=== PATIENT | female | born 1995 | race Caucasian/White ===

== ENCOUNTER 2017-03-03 10:24 | Emergency (ER) | payer OTHER ==
[~2017-03-03] VITALS: Ht 165.1 cm; Wt 89.0 kg
[~2017-03-03 10:24] MED LIST: IBUP-1542 PO
[2017-03-03 10:27] VITALS: Ht 165.1 cm; Wt 89.0 kg
[2017-03-03] MEDS ORDERED: ACETAMINOPHEN 500 MG TAB PO STA (10:58)
[2017-03-03] MEDS ORDERED: SOD CHLORIDE 0.9% 1,000 ML IV ONE (11:00)
--- NOTE | 2017-03-03 11:22 | ERD ---
ER Documentation Chief Complaint Date/Time DATE: 03/03/17 TIME: 11:19 Chief Complaint until thursday fever since then , right breast pain/redness HPI Is a 21-year-old female who presents the emergency department today complaining of bilateral breast pain redness and fever for the past several days. Patient states that she is currently breast-feeding and on Thursday she developed a fever so she stopped breast-feeding she was concerned she was passing the infection to her daughter. States she has taken Tylenol and Motrin. States she has also had a little bit of a sore throat. Denies any cough, dysuria, abdominal pain. ROS All systems reviewed and are negative except as per history of present illness. Medications Home Meds Active Scripts Cephalexin* (Keflex*) 500 Mg Capsule, 500 MG PO QID for 7 Days, CAP Prov:ARA WHITE PA-C 03/03/17 Ibuprofen* (Motrin*) 600 Mg Tab, 600 MG PO Q6, #30 TAB Prov:ARA WHITE PA-C 03/03/17 Acetaminophen* (Tylophen*) 500 Mg Capsule, 1 CAP PO Q6H Y for PAIN AND OR ELEVATED TEMP, #30 CAP Prov:ARA WHITE PA-C 03/03/17 Ibuprofen* (Ibuprofen*) 600 Mg Tablet, 600 MG PO Q6, #20 TAB 0 Refills Prov:FARHAN CHAPPELL MD 06/19/16 Allergies Allergies: Coded Allergies: No Known Drug Allergies (Verified Allergy, Mild, 03/03/17) PMhx/Soc History of Surgery: Yes (back surgery) Anesthesia Reaction: No Hx Neurological Disorder: No Hx Respiratory Disorders: No Hx Cardiac Disorders: No Hx Psychiatric Problems: No Hx Miscellaneous Medical Probl: Yes (abscess) Hx Alcohol Use: No Hx Substance Use: No Hx Tobacco Use: No Smoking Status: Never smoker Physical Exam Vitals Vital Signs Date Time Temp Pulse Resp B/P Pulse Ox O2 Delivery O2 Flow Rate FiO2 03/03/17 13:37 97.8 03/03/17 12:52 100.4 03/03/17 10:27 101.6 111 18 108/65 99 Physical Exam Const: No acute distress Head: Atraumatic Eyes: Normal Conjunctiva ENT: Normal External Ears, Nose and Mouth. Throat erythema no exudate Neck: Full range of motion..~ No meningismus. Resp: Clear to auscultation bilaterally no absent breath sounds. No wheezing Breast bilateral breasts with mild local erythema. Breasts are engorged and she spontaneously lactating Cardio: Regular rate and rhythm, no murmurs Abd: Soft, non tender, non distended. Normal bowel sounds Skin: No petechiae or rashes Back: No midline or flank tenderness Ext: No cyanosis, or edema Neur: Awake and alert Psych: Normal Mood and Affect Results 24 hrs Laboratory Tests Test 03/03/17 12:11 Bedside Urine pH (LAB) 6.0 Bedside Urine Protein (LAB) Trace Bedside Urine Glucose (UA) Negative Bedside Urine Ketones (LAB) Negative Bedside Urine Blood Negative Bedside Urine Nitrite (LAB) Negative Bedside Urine Leukocyte Esterase (L Negative Current Medications Medications (Trade) Dose Ordered Sig/Blil Route PRN Reason Start Time Stop Time Status Last Admin Dose Admin Sodium Chloride (NS) 1,000 ml @ 1,000 mls/hr Q1H ONCE IV 03/03/17 11:00 03/03/17 11:59 DC 03/03/17 11:00 Acetaminophen (Tylenol Tab) 1,000 mg ONCE STAT PO 03/03/17 10:58 03/03/17 11:00 DC 03/03/17 10:58 Cephalexin (Keflex) 500 mg ONCE ONCE PO 03/03/17 11:30 03/03/17 11:31 DC 03/03/17 12:12 DIAGNOSTIC IMAGING REPORT Patient: KRISTIE FELTON : 1995 Age: 21 Sex: F MR #: [id number] DOS: 03/03/17 0000 Ordering MD: ARA WHITE PA-C Location: [facility] Room/Bed: PROCEDURE: Bilateral breast ultrasound. CLINICAL INDICATION: Bilateral breast pain. Right breast pain and redness. The patient is breast-feeding. TECHNIQUE: High-resolution sonography of both breasts was performed in the axial and sagittal planes. COMPARISON: No prior study is available for comparison. FINDINGS: There is no cystic or solid mass on either side. There is no evidence of abscess. Normal breast parenchyma is present bilaterally. There is mild edema in the left breast lower outer quadrant. Dilated ducts are present bilaterally consistent with breast feeding. IMPRESSION: 1. Dilated ducts bilaterally consistent with breast feeding and mild edema in the left breast lower outer quadrant. 2. No fluid collection or mass to suggest abscess. 3. Any further management regarding any breast symptoms should be based upon clinical grounds. RPTAT: QQ .Aiden Huggins MD, Date Time Electronically viewed and signed by .Aiden Huggins MD, on 03/03/2017 12:14 .R/ CC: ARA WHITE PA-C Procedures/MDM This 21-year-old female presents the emergency department today for a fever, breast pain and some bilateral breast redness couple days. Patient is febrile at 101.6 and she is tachycardic. Patient did have some localized erythema in both of her breasts. Her physical exam is otherwise benign and I have low suspicion for pneumonia, acute surgical abdomen, UTI as source of fever however I did obtain a UA and breast ultrasound to rule out an abscess Breast ultrasound shows dilated ducts bilaterally consistent with breast- feeding and mild edema in the left breast lower outer quadrant. There is no cystic or solid mass on either side. There is no evidence of abscess. There is no fluid collection or mass to suggest abscess UA is negative for infection Symptoms at this time is consistent with lactational mastitis. Patient was instructed to continue breast-feeding. Patient was given IV fluids, Tylenol and Keflex here in the emergency department. Fever improved to 100.4. She was then given Motrin and fever improved to 97.8.. Patient reported feeling significantly better she will be given a prescription for Keflex, Tylenol, Motrin for home At this time the patient is stable for discharge and outpatient management. Patient should follow up with their PCP in the next 1-2 days. They may return to the emergency department sooner for any persistent or worsening of symptoms. Patient understood and agreed with the plan. Discussed the patient with Dr. Roach and she is in agreement with the plan Departure Diagnosis: Primary Impression: Mastitis Additional Impression: Fever Fever type: unspecified Qualified Code: R50.9 - Fever, unspecified fever cause Condition: Fair ARA WHITE. PA-C Mar 03, 2017 11:22
[2017-03-03] MEDS ORDERED: CEPHALEXIN 500 MG CAP PO ONE (11:30)
[2017-03-03 12:06] LABS: URINE BLOOD (Dip) POC Negative (NEGATIVE)
--- NOTE | 2017-03-03 12:14 | RADRPT ---
PROCEDURE: Bilateral breast ultrasound. CLINICAL INDICATION: Bilateral breast pain. Right breast pain and redness. The patient is breast -feeding. TECHNIQUE: High-resolution sonography of both breasts was performed in the axial and sagittal plan es. COMPARISON: No prior study is available for comparison. FINDINGS: There is no cystic or solid mass on either side. There is no evidence of abscess. Normal breast parenchyma is present bilaterally. There is mild edema in the left breast lower outer quadrant. Dilated ducts are present bilaterally consistent with breast feeding. IMPRESSION: 1. Dilated ducts bilaterally consistent with breast feeding and mild edema in the left breast lower outer quadrant. 2. No fluid collection or mass to suggest abscess. 3. Any further management regarding any breast symptoms should be based upon clinical grounds. RPTAT: QQ .Aiden Huggins MD, Date Time Electronically viewed and signed by .Aiden Huggins MD, on 03/03/2017 12:14 .R/
[2017-03-03] MEDS ORDERED: ACET500C5 PO (12:34)
[2017-03-03] MEDS ORDERED: IBUP-1542 PO (12:35)
[2017-03-03] MEDS ORDERED: CEPH-443 PO (12:35)
[2017-03-03 13:37] VITALS: TEMP 97.8
[2017-03-14 16:17] LABS: URINE BLOOD (Dip) POC Negative (NEGATIVE)
== END 2017-03-03 13:38 | disposition home or self-care (01) ==
LOC: FTE 10:24
DX: N61.0 Mastitis without abscess (principal)
CPT/HCPCS: 76641; 81003; J7030; Z7610

== ENCOUNTER 2018-01-17 18:19 | Emergency (ER) | END 2018-01-17 19:23 | disposition home or self-care (01) ==

== ENCOUNTER 2018-12-17 18:30 | Emergency (ER) | payer SELFPAY ==
[~2018-12-17] VITALS: Ht 175.3 cm; Wt 83.7 kg
[~2018-12-17 18:30] MED LIST changes: +ACET500C5 PO; +CEPH-443 PO; +CYCL10TA7 PO; +NAPR-985 PO
[2018-12-17 18:47] VITALS: BP 120/62; PULSE 60; RESP 16; Ht 175.3 cm; Wt 83.7 kg
== END 2018-12-17 20:47 | disposition left against medical advice (07) ==
LOC: FTE 18:30
DX: Z53.21 Procedure and treatment not carried out due to patient leaving prior to being seen by health care provider (principal)

== ENCOUNTER 2019-02-23 11:20 | Emergency (ER) | payer OTHER ==
[~2019-02-23] VITALS: Ht 152.4 cm; Wt 79.0 kg
[2019-02-23 11:22] VITALS: BP 134/84; PULSE 60; RESP 18; Ht 152.4 cm; Wt 79.0 kg
[2019-02-23] MEDS ORDERED: AMOX1TAB10 PO (12:01)
[2019-02-23] MEDS ORDERED: IBUP-1542 PO (12:01)
[2019-02-23] MEDS ORDERED: HYDR-4011 PO (12:01)
--- NOTE | 2019-02-23 12:08 | ERD ---
ER Documentation Chief Complaint Chief Complaint TOOTH ACHE HPI This is a 23-year-old female presents ED with complaints of right lower tooth pain x2 weeks. Admits to painful chewing. Denies fevers, chills, headache, and all other symptoms. ROS All systems reviewed and are negative except as per history of present illness. Medications Home Meds Active Scripts Ibuprofen* (Motrin*) 600 Mg Tab, 600 MG PO Q6, #30 TAB Prov:CHASITY COX PA-C 02/23/19 Hydrocodone/Acetaminophen (Blandford 5-325 Tablet) 1 Each Tablet, 1 TAB PO Q6H PRN for PAIN, #7 TAB Prov:CHASITY COX PA-C 02/23/19 Amoxicillin/Potassium Clav (Amox-Clav 875-125 mg Tablet) 875-125 mg Tab, 1 TAB PO BID for 10 Days, #20 TAB Prov:CHASITY COX PA-C 02/23/19 Naproxen* (Naprosyn*) 500 Mg Tablet, 500 MG PO BID PRN for PAIN AND/OR INFLAMMATION, #30 TAB Prov:HENRY CHAPMAN PA-C 01/17/18 Cyclobenzaprine Hcl* (Cyclobenzaprine Hcl*) 10 Mg Tablet, 10 MG PO TID, #15 TAB Prov:HENRY CHAPMAN PA-C 01/17/18 Cephalexin* (Keflex*) 500 Mg Capsule, 500 MG PO QID for 7 Days, CAP Prov:ARA WHITE PA-C 03/03/17 Ibuprofen* (Motrin*) 600 Mg Tab, 600 MG PO Q6, #30 TAB Prov:ARA WHITE PA-C 03/03/17 Acetaminophen* (Tylophen*) 500 Mg Capsule, 1 CAP PO Q6H PRN for PAIN AND OR E LEVATED TEMP, #30 CAP Prov:ARA WHITE PA-C 03/03/17 Ibuprofen* (Ibuprofen*) 600 Mg Tablet, 600 MG PO Q6, #20 TAB 0 Refills Prov:FARHAN CHAPPELL MD 06/19/16 Allergies Allergies: Coded Allergies: No Known Drug Allergies (Verified Allergy, Mild, 02/23/19) PMhx/Soc History of Surgery: Yes (back surgery) Anesthesia Reaction: No Hx Neurological Disorder: No Hx Respiratory Disorders: No Hx Cardiac Disorders: No Hx Psychiatric Problems: No Hx Miscellaneous Medical Probl: Yes (abscess) Hx Alcohol Use: No Hx Substance Use: No Hx Tobacco Use: No Smoking Status: Never smoker FmHx Family History: No diabetes Physical Exam Vitals Vital Signs Date Temp Pulse Resp B/P (MAP) Pulse Ox O2 O2 Flow FiO2 Time Delivery Rate 02/23/19 98.3 60 18 134/84 99 11:22 (101) Physical Exam Const: No acute distress Head: Atraumatic Eyes: Normal Conjunctiva ENT: Normal External Ears, Nose and Mouth. There is tenderness to percussion of tooth 32/wisdom tooth, there is no fluctuant mass palpated along the gumline or inside mouth, no tonsillar adenopathy, exudate or erythema, no kissing tonsils, no uvula deviation Neck: Full range of motion. No meningismus. Resp: No respiratory distress Neur: Awake and alert Psych: Normal Mood and Affect Results 24 hrs Current Medications Medications Dose Sig/Bill Start Time Status Last (Trade) Ordered Route PRN Stop Time Admin Dose Reason Admin Ibuprofen 800 mg ONCE ONCE 02/23/19 (Motrin) PO 12:30 02/23/19 12:31 Procedures/MDM ER COURSE: The patient was stable throughout ED course. I kept the patient and/or family informed of laboratory and diagnostic imaging results throughout the emergency room course. The patient was promptly evaluated and a treatment plan was devised based on H&P and other data. This plan was discussed with the patient who agreed and had no further questions or concerns prior to discharge. MEDICAL DECISION MAKING: This is a 23-year-old female presents ED with complaints of toothache x2 weeks. There is tenderness to percussion along the tooth 32 and a long wisdom tooth. This is possibly a dental infection or patient needs to have wisdom tooth removed. Patient was given prescription for antibiotic Augmentin, Blandford and ibuprofen and advised to follow-up with dentistry in the next 24 hours. No evidence of drainable abscess. At this time there is no dental emergency. History and physical examination other data can not consistent with emergent processes including but not limited to deep tracking infection, Amador's, retropharyngeal abscess, peritonsillar abscess, sepsis, meningitis. Vitals are stable and patient can be managed with close outpatient follow-up. Patient was advised to follow-up with [facility] dentistry in the next 48 hours. Patient was also advised to follow-up with her primary care in the next 48 hours. Return to ED with any worsening symptoms. DISPOSITION PLAN: We discussed follow up with the patient's primary care doctor within 24 to 48 hours. Patient counseled regarding my diagnostic impression and care plan. Prior to discharge all questions answered. Pt agrees with treatment plan and understands strict return precautions. Precautionary instructions provided including instructions to return to the ER if not improving or for any worsening or changing symptoms or concerns. ExitCare instructions provided. Prior to discharge, patients vital signs have been reviewed SPECIALIST FOLLOW UP RECOMMENDED: Dentistry Patient has been advised to follow up with primary care in 1-2 days. Disclaimer: Inadvertent spelling and grammatical errors are likely due to EHR/dictation software use and do not reflect on the overall quality of patient care. Also, please note that the electronic time recorded on this note does not necessarily reflect the actual time of the patient encounter. Departure Diagnosis: Primary Impression: Tooth disease Condition: Stable Patient Instructions: Dental Pain Referrals: BOWEN RODAS (PCP) [facility] ([facility] walk in clinic) Additional Instructions: Patient advised to return to the ED immediately for new or worsening symptoms. Patient advised to follow up with primary care provider in the next 24-48 hours. Patient verbalized understanding and agrees with treatment plan and course of action. If patient has no primary care they may follow up with one of the community clinics listed on the following page or one of the options listed below [facility] + [address] [address] or [facility] [address] [place] [address] or [facility] [address] [place] [address] CHASITY COX PA-C Feb 23, 2019 12:08
[2019-02-23] MEDS ORDERED: IBUPROFEN 800 MG TAB PO ONE (12:30)
== END 2019-02-23 12:12 | disposition home or self-care (01) ==
LOC: FTE 11:20
DX: K08.9 Disorder of teeth and supporting structures, unspecified (principal)
CPT/HCPCS: Z7502; Z7610; 99283